=== PATIENT | female | born 1965 | race Hispanic/Latino ===

== ENCOUNTER → 2017-12-17 | Day surgery (SDC) | payer OTHER ==
[~2017-12-17] MED LIST: FENTANYL CITRATE/PF 100MCG/2 ML INJ ONE; HYOSCYAMINE SULFATE 0.5 MG/ML AMP ONE; LIDOCAINE HCL 2% LOCAL INJ 5 ML SDV VIAL INJ ONE; MIDAZOLAM HCL 2 MG/2 ML VIAL ONE; PROPOFOL IV EMULSION 10 MG/ML 50 ML VIAL ONE
--- NOTE | 2017-12-17 11:34 | Operative Report ---
DATE OF PROCEDURE: December 17, 2017 REFERRING PHYSICIAN: Dr. Radha Saha. PROCEDURES PERFORMED 1. Esophagogastroduodenoscopy. 2. Colonoscopy with polypectomy. INDICATIONS FOR EGD: Heartburn, indigestion. INDICATIONS FOR COLONOSCOPY: Colorectal cancer screening. MEDICATIONS: Patient was done under MAC. Please see anesthesiologist's note. PROCEDURE: With the patient in left lateral decubitus position, flexible fiberoptic Olympus gastroscope was introduced into the esophagus under direct visualization without any difficulty. Esophagus appeared to be within normal limits. The scope was then advanced with ease into the stomach. Mucosa overlying the antrum and the body revealed some diffuse erythema and [id number] edema and biopsies were obtained and sent to stain for H. pylori. Pylorus appeared to be of normal contour and shape, was intubated with ease, and the scope was advanced all the way to the second portion of the duodenum. The scope was then withdrawn slowly. Mucosa overlying the proximal second portion and the duodenal bulb appeared to be within normal limits. The scope was then withdrawn back into the stomach and retroflexed and mucosa overlying the fundus and the cardia appeared to be within normal limits. The scope was then straightened out. The stomach was decompressed. The scope was subsequently withdrawn. Patient tolerated the procedure well. IMPRESSION 1. Normal esophagus. 2. Gastritis, biopsied. Biopsies sent to stain for H. pylori. PLAN: Follow up histology. Initiate Protonix 40 mg 1 p.o. q.a.m. a.c. Patient was then turned around and after adequate lubrication of the anal canal, a flexible fiberoptic Olympus colonoscope was inserted into the rectum with ease and advanced all the way to the cecum. An approximately 6 mm sessile polyp was snared from the cecum. The ascending, transverse, and descending appeared to be within normal limits. Diverticular disease was noted in the sigmoid colon. Two polyps were hot biopsied from the distal sigmoid. The rectum appeared to be within normal limits. The scope was then retroflexed into the distal rectum and some moderate-sized internal hemorrhoids were noted, none of which is actively bleeding. The scope was then straightened out and was subsequently withdrawn. Patient tolerated the procedure well. IMPRESSION 1. Cecal polyp snared. 2. Diverticulosis. 3. Sigmoid colon polyps times 2, hot biopsied. 4. Internal hemorrhoids, none actively bleeding. PLAN: Follow up histology. Initiate high-fiber, low-fat diet. Initiate high-fiber supplement. Patient will need a followup colonoscopy in 3 years. Job#: [id number] PKU cc:Dr. Radha Saha
== END | disposition home or self-care (01) ==
LOC: OR 06:21
PROVIDERS: ATTEND Internal Medicine Gastroenterology
DX: Z12.11 Encounter for screening for malignant neoplasm of colon (principal); D12.0 Benign neoplasm of cecum; K29.50 Unspecified chronic gastritis without bleeding; B96.81 Helicobacter pylori [H. pylori] as the cause of diseases classified elsewhere; K57.30 Diverticulosis of large intestine without perforation or abscess without bleeding; K59.00 Constipation, unspecified; K64.8 Other hemorrhoids; Z01.810 Encounter for preprocedural cardiovascular examination
CPT/HCPCS: 43239; 45384; 45385; 81025; 93005; J1980; J2001; J2250

== ENCOUNTER → 2022-12-18 | Day surgery (SDC) | payer OTHER ==
[~2022-12-18] MED LIST changes: -FENTANYL CITRATE/PF 100MCG/2 ML INJ ONE; -HYOSCYAMINE SULFATE 0.5 MG/ML AMP ONE; +PROPOFOL IV EMULSION 10 MG/ML 20 ML VIAL ONE; -PROPOFOL IV EMULSION 10 MG/ML 50 ML VIAL ONE
[2022-12-18 09:32] VITALS: BP 108/78
== END | disposition home or self-care (01) ==
LOC: OR 06:48
PROVIDERS: ATTEND Internal Medicine Gastroenterology
DX: Z09 Encounter for follow-up examination after completed treatment for conditions other than malignant neoplasm (principal); K63.5 Polyp of colon; K57.30 Diverticulosis of large intestine without perforation or abscess without bleeding; K64.8 Other hemorrhoids; Z88.0 Allergy status to penicillin; Z01.810 Encounter for preprocedural cardiovascular examination
CPT/HCPCS: 45380; 45385; 93005; J2001; J2250; J2704; 45378